=== PATIENT | female | born 1995 | race American Indian/Alaskan Native ===

== ENCOUNTER 2017-07-03 12:18 | Emergency (ER) | payer SELFPAY ==
[2017-07-03 12:34] VITALS: BP 149/93
[2017-07-03] MEDS ORDERED: MOTRIN PO ONE (15:00)
--- NOTE | 2017-07-03 15:05 | Emergency Department Report ---
ED Lower Extremity HPI - General Chief Complaint: Extremity Injury, Lower Stated Complaint: FALL,RIGHT ANKLE INJURY Time Seen by Provider: 07/03/17 14:00 Source: patient Mode of arrival: Ambulatory Limitations: Physical Limitation - History of Present Illness Initial Comments: This is a 21-year-old female nontoxic, well nourished in appearance, no acute signs of distress presents to the ED complaining of right ankle pain and swelling. Patient stated this morning she was walking down the steps when she inadvertently twisted her right ankle. Patient denies any nausea, vomiting, fever, chills, joint redness, joint swelling, chest pain, shortness of breath, numbness or tingling. Patient discussed pain as aching with level of 8 out of 10. Patient stated has decreased range of motion due to pain and has limited gait due to pain as well. Patient denies any allergies or past history. MD Complaint: ankle injury -: Gradual, This morning Injury: Ankle: Right Type of Injury: inversion Place: home Severity: mild Severity scale (0 -10): 8 Improves With: immobilization Worsens With: weight bearing, movement Context: other (inversion twist) Associated Symptoms: swelling, able to partially bear weight, ambulatory. denies: snap/pop sensation, numbness, tingling, unable to bear weight - Related Data Previous Rx's Medication Instructions Recorded Last Taken Type Ibuprofen [Motrin 600 MG tab] 600 mg PO Q8H PRN #30 tablet 07/03/17 Unknown Rx Allergies Allergy/AdvReac Type Severity Reaction Status Date / Time No Known Allergies Allergy Unverified 07/03/17 12:34 ED Review of Systems ROS: Stated complaint: FALL,RIGHT ANKLE INJURY Other details as noted in HPI Constitutional: denies: chills, fever Eyes: denies: eye pain, eye discharge, vision change ENT: denies: ear pain, throat pain Respiratory: denies: cough, shortness of breath, wheezing Cardiovascular: denies: chest pain, palpitations Endocrine: no symptoms reported Gastrointestinal: denies: abdominal pain, nausea, diarrhea Genitourinary: denies: urgency, dysuria, discharge Musculoskeletal: denies: back pain, joint swelling, arthralgia Skin: denies: rash, lesions Neurological: denies: headache, weakness, paresthesias Psychiatric: denies: anxiety, depression Hematological/Lymphatic: denies: easy bleeding, easy bruising ED Past Medical Hx - Social History Smoking Status: Never Smoker Substance Use Type: None - Medications Home Medications: Home Medications Medication Instructions Recorded Confirmed Last Taken Type Ibuprofen [Motrin 600 MG tab] 600 mg PO Q8H PRN #30 tablet 07/03/17 Unknown Rx ED Physical Exam - General Limitations: Physical Limitation General appearance: alert, in no apparent distress - Head Head exam: Present: atraumatic, normocephalic, normal inspection - Eye Eye exam: Present: normal appearance, PERRL, EOMI. Absent: scleral icterus, conjunctival injection, nystagmus, periorbital swelling, periorbital tenderness Pupils: Present: normal accommodation - ENT ENT exam: Present: normal exam, normal orophraynx, mucous membranes moist, TM's normal bilaterally, normal external ear exam - Neck Neck exam: Present: normal inspection, full ROM. Absent: tenderness, meningismus, lymphadenopathy, thyromegaly - Respiratory Respiratory exam: Present: normal lung sounds bilaterally. Absent: respiratory distress, wheezes, rales, rhonchi, stridor, chest wall tenderness, accessory muscle use, decreased breath sounds, prolonged expiratory - Cardiovascular Cardiovascular Exam: Present: regular rate, normal rhythm, normal heart sounds. Absent: bradycardia, tachycardia, irregular rhythm, systolic murmur, diastolic murmur, rubs, gallop - GI/Abdominal GI/Abdominal exam: Present: soft, normal bowel sounds. Absent: distended, tenderness, guarding, rebound, rigid, diminished bowel sounds - Rectal Rectal exam: Present: deferred - Extremities Exam Extremities exam: Present: normal inspection, full ROM, tenderness, normal capillary refill. Absent: pedal edema, joint swelling, calf tenderness - Expanded Lower Extremity Exam Right Hip exam: Present: normal inspection, full ROM Upper Leg exam: Present: normal inspection, full ROM Knee exam: Present: normal inspection, full ROM Lower Leg exam: Present: normal inspection, full ROM Ankle exam: Present: normal inspection, full ROM, tenderness, swelling. Absent : abrasion, laceration, ecchymosis, deformity, crepidus, dislocation, erythema, anterior draw sign Foot/Toe exam: Present: normal inspection, full ROM. Absent: tenderness, swelling, abrasion, laceration, ecchymosis, deformity, crepidus, dislocation, erythema, amputation, puncture wound, foreign body, calcaneal tenderness, tenderness at base of 5th metatarsal, nail avulsion, subungual hematoma Neuro vascular tendon exam: Present: no vascular compromise. Absent: pulse deficit, abnormal cap refill, motor deficit, sensory deficit, tendon deficit, extremity cold to touch, pallor, abnormal 2-point discrimination, decreased fine /light touch, foot drop, peroneal nerve deficit, significant pain with passive ROM of distal joint Gait: Positive: observed and limited by pain 1 - swelling with tenderness - Back Exam Back exam: Present: normal inspection, full ROM. Absent: tenderness, CVA tenderness (R), CVA tenderness (L), muscle spasm, paraspinal tenderness, vertebral tenderness, rash noted - Neurological Exam Neurological exam: Present: alert, oriented X3, CN II-XII intact, normal gait, reflexes normal - Psychiatric Psychiatric exam: Present: normal affect, normal mood - Skin Skin exam: Present: warm, dry, intact, normal color. Absent: rash - Other Other exam information: Negative Stout test ED Course Vital Signs 07/03/17 12:26 Temperature 99.1 F Pulse Rate 84 Respiratory 20 Rate Blood Pressure 149/93 Blood Pressure 149/93 [Left] O2 Sat by Pulse 98 Oximetry - Reevaluation(s) Reevaluation #1: 07/03/17 15:05 Patient is speaking in full sentences with no signs of distress noted. ED Lower Extremity MDM - Medical Decision Making 21-year-old female that presents with a right ankle sprain. Patient was examined by me patient is stable. X-ray has been obtained and dictated radiologist with negative findings of any abnormalities, fractures or dislocation. Patient was notified of x-ray results with no further questions noted by the patient. Patient received ice pack to apply to the extremity. Patient received ibuprofen 800 mg by mouth in the ED. Patient received ankle stirrup and crutches at discharge. Patient was educated and instructed in Rice therapy. Patient is hemodynamically stable with stable vital signs. At time time of discharge, the patient does not seem toxic or ill in appearance. No acute signs of distress noted. Patient agrees to discharge treatment plan of care. No further questions noted by the patient. Patient was instructed to follow-up with a orthopedic doctor in 3-5 days or if symptoms worsen and continue return to emergency room as soon as possible possible. Critical care attestation.: If time is entered above; I have spent that time in minutes in the direct care of this critically ill patient, excluding procedure time. ED Disposition Clinical Impression: Right ankle sprain Qualifiers: Encounter type: initial encounter Involved ligament of ankle: unspecified ligament Qualified Code(s): S93.401A - Sprain of unspecified ligament of right ankle, initial encounter Disposition: TO HOME OR SELFCARE Is pt being admited?: No Does the pt Need Aspirin: No Condition: Stable Instructions: Ankle Sprain (ED), Ankle Stirrup Splint (ED), Crutch Instructions (ED), RICE Therapy (ED) Additional Instructions: follow-up with a orthopedic doctor in 3-5 days or if symptoms worsen and continue return to emergency room as soon as possible possible. Rest, elevate, ice extremity. Prescriptions: Ibuprofen [Motrin 600 MG tab] 600 mg PO Q8H PRN #30 tablet PRN Reason: Pain Referrals: PRIMARY CAREMD [Primary Care Provider] - 3-5 Days NOY JARA MD [Staff Physician] - 3-5 Days [facility] [Outside] - 3-5 Days [facility] [Outside] - 3-5 Days Forms: Work/School Release Form(ED)
--- NOTE | 2017-07-03 16:11 | XRay Report ---
Right ankle 3 views: History: Fall with pain. Findings: Soft tissue swelling lateral malleolus. No fracture or dislocation. Normal articular surfaces. Impression: No evidence of acute fracture.
--- NOTE | 2017-07-03 16:12 | XRay Report ---
Right foot 3 views: History: Fall with pain. Findings: No bony or articular abnormality. No fracture or dislocation or periosteal reaction. Impression: No evidence of acute fracture.
== END 2017-07-03 15:15 | disposition home or self-care (01) ==
LOC: ED 12:18
DX: S93.401A Sprain of unspecified ligament of right ankle, initial encounter (principal); X58.XXXA Exposure to other specified factors, initial encounter; Y93.01 Activity, walking, marching and hiking; Y99.8 Other external cause status; Y92.098 Other place in other non-institutional residence as the place of occurrence of the external cause

== ENCOUNTER 2017-11-09 10:08 | Emergency (ER) | payer OTHER ==
[2017-11-09 10:13] VITALS: BP 159/87
--- NOTE | 2017-11-09 11:34 | Emergency Department Report ---
ED Headache HPI - General Chief Complaint: Headache Stated Complaint: HEADACES Time Seen by Provider: 11/09/17 11:02 Source: patient Exam Limitations: no limitations - History of Present Illness Initial Comments: This is a 21 y.o. female that presents with headache for 4 months intermittently. Currently not having symptoms. Reports having a migraine 10 minutes prior to assessment. Patient reports headaches began after losing glasses. She has not been able to afford a new pair. She have been taking ibuprofen for symptom control with minimal improvement. Headache is usually on the left side of head and last for about 20 minutes. Reports when she take a nap that usually resolve symptoms better than NSAID's. Denies aura, nausea/ vomiting, photophobia, or visual changes. Timing/Duration: 1/2 hour Quality: pressure Head Injury Location: frontal (left side of frontal region) Recent Head Trauma: no recent headache/trauma, frequent headaches Associated Symptoms: denies symptoms Allergies/Adverse Reactions: Allergies No Known Allergies Allergy (Verified 11/09/17 10:10) Home Medications: Ambulatory Orders Ibuprofen [Motrin 600 MG tab] 600 mg PO Q8H PRN #30 tablet 07/03/17 ED Review of Systems ROS: Stated complaint: HEADACES Other details as noted in HPI Constitutional: denies: chills, fever ENT: denies: ear pain, throat pain Respiratory: denies: cough, shortness of breath, wheezing Cardiovascular: denies: chest pain, palpitations Gastrointestinal: denies: abdominal pain, nausea, diarrhea Neurological: headache. denies: weakness, paresthesias Psychiatric: denies: anxiety, depression ED Past Medical Hx - Past Medical History Previous Medical History?: No - Surgical History Additional Surgical History: eye surgery - Social History Smoking Status: Never Smoker Substance Use Type: None - Medications Home Medications: Home Medications Medication Instructions Recorded Confirmed Last Taken Type Ibuprofen [Motrin 600 MG tab] 600 mg PO Q8H PRN #30 tablet 07/03/17 Unknown Rx ED Physical Exam - General Limitations: No Limitations General appearance: alert, in no apparent distress - ENT ENT exam: Present: mucous membranes moist - Neck Neck exam: Present: normal inspection, full ROM. Absent: tenderness, lymphadenopathy, thyromegaly - Respiratory Respiratory exam: Present: normal lung sounds bilaterally. Absent: respiratory distress - Cardiovascular Cardiovascular Exam: Present: regular rate, normal rhythm. Absent: systolic murmur, diastolic murmur, rubs, gallop - GI/Abdominal GI/Abdominal exam: Present: soft, normal bowel sounds - Neurological Exam Neurological exam: Present: alert, oriented X3, normal gait - Psychiatric Psychiatric exam: Present: normal affect, normal mood - Skin Skin exam: Present: warm, dry, intact, normal color. Absent: rash ED Course Vital Signs 11/09/17 10:11 Temperature 98.6 F Pulse Rate 100 H Respiratory 18 Rate Blood Pressure 159/87 O2 Sat by Pulse 100 Oximetry ED Medical Decision Making - Radiology Data Radiology results: report reviewed, image reviewed Impression: Essentially negative CT scan of head. - Medical Decision Making This is a 21 y.o. female that presents with headache for 4 months intermittently. No history of migraines. Patient is stable and was examined by me. Currently not having a headache at this time. CT of head obtained and dictated by radiologist. Patient notified of normal results. Blood pressure 159/87. Patient instructed to continue using NSAID's when headache begin. F/U with PCP for headaches and elevated blood pressure. Instructed to start low sodium diet and increase activity. No further questions noted by the patient. Discharged home in stable condition. Follow up with PCP in 24-72 hours. Critical care attestation.: If time is entered above; I have spent that time in minutes in the direct care of this critically ill patient, excluding procedure time. ED Disposition Clinical Impression: Elevated blood pressure reading in office without diagnosis of hypertension Tension type headache Qualifiers: Headache chronicity pattern: episodic headache Intractability: not intractable Qualified Code(s): G44.219 - Episodic tension-type headache, not intractable Disposition: - TO HOME OR SELFCARE Is pt being admited?: No Does the pt Need Aspirin: No Condition: Stable Instructions: Tension Headache (ED), Acute Headache (ED), Hypertension (ED), Low Sodium Diet (ED) Additional Instructions: Take medication at start of headache. Minimize caffeine intake. Eat at scheduled times or 3 meals a day with snacks. Eat a low sodium diet to lower blood pressure. Follow up with primary care provider in 24-72 hours to f/u on elevated blood pressure. Referrals: [facility] [Outside] - 3-5 Days [facility] [Outside] - 3-5 Days [facility] [Outside] - 3-5 Days Time of Disposition: 12:49 Print Language: [place] ISLAND[place]
--- NOTE | 2017-11-09 12:04 | Cat Scan Report ---
CT scan of head without IV contrast: History: Migraine. Findings: Ventricles are normal in size and midline in location. No evidence of acute ischemic, hemorrhage or mass. No extra-axial fluid collection. Impression: Essentially negative CT scan of head.
== END 2017-11-09 12:57 | disposition home or self-care (01) ==
LOC: ED 10:08
DX: G44.219 Episodic tension-type headache, not intractable (principal); R03.0 Elevated blood-pressure reading, without diagnosis of hypertension
CPT/HCPCS: 70450; 99283

== ENCOUNTER 2017-12-04 08:50 | Emergency (ER) | payer SELFPAY ==
[2017-12-04 09:15] VITALS: BP 136/84
[2017-12-04] MEDS: MOTRIN PO ONE (11:18)
--- NOTE | 2017-12-04 11:22 | Emergency Department Report ---
ED Lower Extremity HPI - General Chief Complaint: Extremity Injury, Lower Stated Complaint: KNEE PAIN Time Seen by Provider: 12/04/17 10:57 Source: patient Mode of arrival: Ambulatory Limitations: No Limitations - History of Present Illness Initial Comments: This is a 21-year-old female nontoxic, well nourished in appearance, no acute signs of distress presents to the ED with c/o of right knee pain x3 days. Patient stated she was at work and hit her right knee against a metal and developed pain that is increasing. Patient denies any joint swelling, redness, fever, chills, nausea, vomiting, chest pain, short of breath, headache or stiff neck. Patient denies any numbness or tingling. Patient denies decreased range of motion or abnormal gait. Patient denies any drug allergies or significant past medical history. MD Complaint: knee injury -: days(s) (3) Injury: Knee: Right Type of Injury: blunt Place: work Severity: mild Severity scale (0 -10): 8 Improves With: immobilization Worsens With: movement, palpation Context: direct blow Associated Symptoms: ambulatory. denies: snap/pop sensation, swelling, numbness , tingling, unable to bear weight, able to partially bear weight - Related Data Previous Rx's Medication Instructions Recorded Last Taken Type Ibuprofen [Motrin 600 MG tab] 600 mg PO Q8H PRN #30 tablet 07/03/17 Unknown Rx Ibuprofen [Motrin] 600 mg PO Q8H PRN #30 tablet 12/04/17 Unknown Rx Allergies Allergy/AdvReac Type Severity Reaction Status Date / Time No Known Allergies Allergy Verified 11/09/17 10:10 ED Review of Systems ROS: Stated complaint: KNEE PAIN Other details as noted in HPI Constitutional: denies: chills, fever Eyes: denies: eye pain, eye discharge, vision change ENT: denies: ear pain, throat pain Respiratory: denies: cough, shortness of breath, wheezing Cardiovascular: denies: chest pain, palpitations Endocrine: no symptoms reported Gastrointestinal: denies: abdominal pain, nausea, diarrhea Genitourinary: denies: urgency, dysuria, discharge Musculoskeletal: arthralgia. denies: back pain, joint swelling Skin: denies: rash, lesions Neurological: denies: headache, weakness, paresthesias Psychiatric: denies: anxiety, depression Hematological/Lymphatic: denies: easy bleeding, easy bruising ED Past Medical Hx - Past Medical History Previous Medical History?: Yes Additional medical history: Vaginal delivery x 1 05-27-2016 - Surgical History Past Surgical History?: Yes Additional Surgical History: mine eye lid surgery - Social History Smoking Status: Never Smoker Substance Use Type: Non Opiate Pain - Medications Home Medications: Home Medications Medication Instructions Recorded Confirmed Last Taken Type Ibuprofen [Motrin 600 MG tab] 600 mg PO Q8H PRN #30 tablet 07/03/17 Unknown Rx Ibuprofen [Motrin] 600 mg PO Q8H PRN #30 tablet 12/04/17 Unknown Rx ED Physical Exam - General Limitations: No Limitations General appearance: alert, in no apparent distress - Head Head exam: Present: atraumatic, normocephalic - Eye Eye exam: Present: normal appearance Pupils: Present: normal accommodation - ENT ENT exam: Present: normal exam, mucous membranes moist - Neck Neck exam: Present: normal inspection, full ROM - Respiratory Respiratory exam: Present: normal lung sounds bilaterally. Absent: respiratory distress, wheezes, rales, rhonchi, stridor, chest wall tenderness, accessory muscle use, decreased breath sounds, prolonged expiratory - Cardiovascular Cardiovascular Exam: Present: regular rate, normal rhythm, normal heart sounds. Absent: irregular rhythm, systolic murmur, diastolic murmur, rubs, gallop - GI/Abdominal GI/Abdominal exam: Present: soft, normal bowel sounds - Rectal Rectal exam: Present: deferred - Extremities Exam Extremities exam: Present: normal inspection, full ROM, tenderness, normal capillary refill. Absent: pedal edema, joint swelling, calf tenderness - Expanded Lower Extremity Exam Right Hip exam: Present: normal inspection, full ROM Upper Leg exam: Present: normal inspection, full ROM Knee exam: Present: normal inspection, full ROM, tenderness, full knee extension. Absent: swelling, abrasion, laceration, ecchymosis, deformity, crepidus, dislocation, erythema, effusion, pain w/ pronation/supination, posterior draw sign, pain/laxity with valgus, pain/laxity with varus Lower Leg exam: Present: normal inspection, full ROM. Absent: Teresa's sign Ankle exam: Present: normal inspection, full ROM Foot/Toe exam: Present: normal inspection, full ROM Neuro vascular tendon exam: Present: no vascular compromise. Absent: pulse deficit, abnormal cap refill, motor deficit, sensory deficit, tendon deficit, extremity cold to touch, pallor, abnormal 2-point discrimination, decreased fine /light touch, foot drop, peroneal nerve deficit, significant pain with passive ROM of distal joint Gait: Positive: observed and normal - Back Exam Back exam: Present: normal inspection, full ROM - Neurological Exam Neurological exam: Present: alert, oriented X3, normal gait, reflexes normal - Psychiatric Psychiatric exam: Present: normal affect, normal mood - Skin Skin exam: Present: warm, dry, intact, normal color. Absent: rash ED Course Vital Signs 12/04/17 09:11 Temperature 98.8 F Pulse Rate 95 H Respiratory 20 Rate Blood Pressure 136/84 O2 Sat by Pulse 100 Oximetry - Reevaluation(s) Reevaluation #1: 12/04/17 11:22 Patient is speaking in full sentences with no signs of distress noted. ED Lower Extremity MDM - Medical Decision Making This is a 21-year-old female that presents with right knee strain. Patient is stable and was examined by me. X-ray has been obtained and dictated by the radiologist within normal limits. Patient is notified of the x-ray results with normal by the patient. Patient did receive Motrin in the ED. Patient was instructed on rice therapy. There is no joint swelling, joint redness or any signs of cellulitis. Patient is discharge and was instructed to Follow-up with a orthopedic doctor in 3-5 days or if symptoms worsen and continue return to emergency room as soon as possible. At time of discharge, the patient does not seem toxic or ill in appearance. No acute signs of distress noted. Patient agrees to discharge treatment plan of care. No further questions noted by the patient. Critical care attestation.: If time is entered above; I have spent that time in minutes in the direct care of this critically ill patient, excluding procedure time. ED Disposition Clinical Impression: Strain of right knee Qualifiers: Encounter type: initial encounter Qualified Code(s): S86.911A - Strain of unspecified muscle(s) and tendon(s) at lower leg level, right leg, initial encounter Disposition: TO HOME OR SELFCARE Is pt being admited?: No Does the pt Need Aspirin: No Condition: Stable Instructions: Knee Pain (ED), RICE Therapy (ED), Ibuprofen (By mouth) Additional Instructions: Follow-up with a orthopedic doctor in 3-5 days or if symptoms worsen and continue return to emergency room as soon as possible. Prescriptions: Ibuprofen [Motrin] 600 mg PO Q8H PRN #30 tablet PRN Reason: Pain Referrals: PRIMARY CARE, [Primary Care Provider] - 3-5 Days NOY JARA MD [Staff Physician] - 3-5 Days [facility] [Outside] - 3-5 Days [facility] [Outside] - 3-5 Days Forms: Work/School Release Form(ED)
--- NOTE | 2017-12-04 11:22 | XRay Report ---
RIGHT KNEE RADIOGRAPHS INDICATION: Pain. COMPARISON: None similar. FINDINGS: AP, lateral and oblique right knee radiographs demonstrate intact bony articulation and appearance. Normal soft tissues without evidence of suprapatellar effusion. CONCLUSION: Normal right knee radiographs. Thank you for the opportunity to participate in this patient's care.
== END 2017-12-04 11:55 | disposition home or self-care (01) ==
LOC: ED 08:50
DX: S86.911A Strain of unspecified muscle(s) and tendon(s) at lower leg level, right leg, initial encounter (principal); W22.8XXA Striking against or struck by other objects, initial encounter; Y93.89 Activity, other specified; Y92.89 Other specified places as the place of occurrence of the external cause; Y99.8 Other external cause status
CPT/HCPCS: 99283

== ENCOUNTER 2018-01-02 14:48 | Emergency (ER) | payer MEDICAID ==
[2018-01-02 15:22] VITALS: BP 135/94
[2018-01-02] MEDS ORDERED: DELTASONE PO ONE (17:38)
[2018-01-02] MEDS ORDERED: SUDAFED 12 HR PO PRN (17:38)
--- NOTE | 2018-01-02 17:39 | Emergency Department Report ---
Minor Respiratory - HPI Chief Complaint: Earache Stated Complaint: FLU LIKE SYMPTOMS Time Seen by Provider: 01/02/18 17:04 Duration: 3 Days Pain Location: Nose, Ear Severity: mild Minor Respiratory: Yes Rhinorrhea, Yes Able to Tolerate Fluids, Yes Ear Pain ( right), Yes Cough, No Sore Throat, No Sick Contacts, No Hemoptysis, No Chest Pain, No Shortness of Breath, No Fever Other History: 22-year-old female with no problem medical history presents with worsening cold symptoms 3 days. Patient admits cough and runny nose and decreased appetite but is able to eat and drink fluids appropriately. Patient says she's been taking Tylenol with some relief. Patient also admits right ear pain. She denies any trauma to the ears. She denies fevers/chills/nausea vomiting. ED Review of Systems ROS: Stated complaint: FLU LIKE SYMPTOMS Other details as noted in HPI Constitutional: denies: chills, fever Eyes: denies: eye pain, eye discharge, vision change ENT: ear pain (right). denies: throat pain Respiratory: cough. denies: shortness of breath, wheezing Cardiovascular: denies: chest pain, palpitations Endocrine: no symptoms reported Gastrointestinal: denies: abdominal pain, nausea, diarrhea Genitourinary: denies: urgency, dysuria, discharge Musculoskeletal: denies: back pain, joint swelling, arthralgia Skin: denies: rash, lesions Neurological: denies: headache, weakness, paresthesias Psychiatric: denies: anxiety, depression Hematological/Lymphatic: denies: easy bleeding, easy bruising ED Past Medical Hx - Past Medical History Previous Medical History?: No Additional medical history: Vaginal delivery x 1 05-27-2016 - Surgical History Past Surgical History?: No Additional Surgical History: mine eye lid surgery - Social History Smoking Status: Never Smoker Substance Use Type: None - Medications Home Medications: Home Medications Medication Instructions Recorded Confirmed Last Taken Type Ibuprofen [Motrin 600 MG tab] 600 mg PO Q8H PRN #30 tablet 07/03/17 Unknown Rx Ibuprofen [Motrin 600 MG tab] 600 mg PO Q8H PRN #30 tablet 01/02/18 Unknown Rx Pseudoephedrine ER [Sudafed 12 Hr] 120 mg PO Q12HR PRN #20 tablet 01/02/18 Unknown Rx guaiFENesin [Robitussin] 200 mg PO TID #20 tablet 01/02/18 Unknown Rx Minor Respiratory Exam - Exam General: Vital signs noted. No distress. Alert and acting appropriately. HEENT: Yes Moist Mucous Membranes, Yes Maxillary Tenderness, No Pharyngeal Erythema, No Pharyngeal Exudates, No Rhinorrhea, No Conjuctival Injection, No Frontal Tenderness Ear: Neither TM Bulge, Neither TM Erythema, Neither EAC Pain, Neither EAC Discharge Neck: Yes Supple, No Adenopathy Lungs: Yes Good Air Exchange, No Wheezes, No Ronchi, No Stridor, No Cough, No Labored Respirations, No Retractions, No Use of Accessory Muscles, No Other Abnormal Lung Sounds Heart: Yes Regular, No Murmur Abdomen: Yes Normal Bowel Sounds, No Tenderness, No Peritoneal Signs Skin: No Rash, No Edema Neurologic: Alert and oriented, no deficits. Musculoskeletal: Unremarkable. ED Course Vital Signs 01/02/18 15:18 Temperature 98.3 F Pulse Rate 96 H Respiratory 16 Rate Blood Pressure 135/94 O2 Sat by Pulse 99 Oximetry ED Medical Decision Making - Medical Decision Making 22-year-old female presents with upper respiratory infection/sinusitis ED course: The patient received maintenance in the ED Discussed with patient and to take medication as prescribed. Discussed symptomatic relief Patient is in no acute or respiratory distress Vital signs are normal. Discussed with the patient follow-up physician in 3-5 days. Critical care attestation.: If time is entered above; I have spent that time in minutes in the direct care of this critically ill patient, excluding procedure time. ED Disposition Clinical Impression: URI (upper respiratory infection) Qualifiers: URI type: unspecified URI Qualified Code(s): J06.9 - Acute upper respiratory infection, unspecified Sinusitis Qualifiers: Sinusitis location: maxillary Chronicity: acute Recurrence: non-recurrent Qualified Code(s): J01.00 - Acute maxillary sinusitis, unspecified Disposition: - TO HOME OR SELFCARE Is pt being admited?: No Does the pt Need Aspirin: No Condition: Stable Instructions: Upper Respiratory Infection (ED), Viral Syndrome (ED), Cold Symptoms (ED) Additional Instructions: Make sure to follow up with the primary care physician as discussed. Take all your medications as you've been prescribed. If you have any worsening symptoms or develop new symptoms please return to ED immediately. Prescriptions: guaiFENesin [Robitussin] 200 mg PO TID #20 tablet Ibuprofen [Motrin 600 MG tab] 600 mg PO Q8H PRN #30 tablet PRN Reason: Pain Pseudoephedrine ER [Sudafed 12 Hr] 120 mg PO Q12HR PRN #20 tablet PRN Reason: Allergy Symptoms Referrals: Todd FREED [Other] - 3-5 Days Forms: Work/School Release Form(ED) Time of Disposition: 18:12
[2018-01-02] MEDS ORDERED: ROBITUSSIN PO ONE (19:00)
== END 2018-01-02 18:53 | disposition home or self-care (01) ==
LOC: ED 14:48
DX: J01.00 Acute maxillary sinusitis, unspecified (principal); J06.9 Acute upper respiratory infection, unspecified
CPT/HCPCS: 99282; J7512

== ENCOUNTER 2018-03-07 08:14 | Emergency (ER) | payer MEDICAID ==
[2018-03-07 08:21] VITALS: BP 144/90
--- NOTE | 2018-03-07 09:40 | Emergency Department Report ---
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 Patient states that she has the most pain in the mornings and when she is transitioning going in or out of her vehicle. The lady status postsome increased weight on that leg that she has pain. Patient denies any leg swelling trauma chest pain shortness of breath at this time. Patient states 8 out of 10 pain she is not taking anything [id number] for pain at this time. - Related Data Previous Rx's Medication Instructions Recorded Last Taken Type Ibuprofen [Motrin 600 MG tab] 600 mg PO Q8H PRN #30 tablet 07/03/17 Unknown Rx Pseudoephedrine ER [Sudafed 12 Hr] 120 mg PO Q12HR PRN #20 tablet 01/02/18 Unknown Rx guaiFENesin [Robitussin] 200 mg PO TID #20 tablet 01/02/18 Unknown Rx Ibuprofen [Motrin 600 MG tab] 600 mg PO Q8H PRN #30 tablet 03/07/18 Unknown Rx Allergies Allergy/AdvReac Type Severity Reaction Status Date / Time No Known Allergies Allergy Verified 11/09/17 10:10 ED Review of Systems ROS: Stated complaint: RIGHT KNEE PAIN [id number] Other details as noted in HPI Comment: All other systems reviewed and negative ED Past Medical Hx - Past Medical History Previous Medical History?: Yes Hx Hypertension: Yes (no meds) Additional medical history: Vaginal delivery x 1 05-27-2016 - Surgical History Past Surgical History?: Yes Additional Surgical History: mine eye lid surgery - Social History Smoking Status: Never Smoker Substance Use Type: Non Opiate Pain - Medications Home Medications: Home Medications Medication Instructions Recorded Confirmed Last Taken Type Ibuprofen [Motrin 600 MG tab] 600 mg PO Q8H PRN #30 tablet 07/03/17 Unknown Rx Pseudoephedrine ER [Sudafed 12 Hr] 120 mg PO Q12HR PRN #20 tablet 01/02/18 Unknown Rx guaiFENesin [Robitussin] 200 mg PO TID #20 tablet 01/02/18 Unknown Rx Ibuprofen [Motrin 600 MG tab] 600 mg PO Q8H PRN #30 tablet 03/07/18 Unknown Rx ED Physical Exam - General Limitations: No Limitations General appearance: alert, in no apparent distress - Head Head exam: Present: atraumatic, normocephalic - Eye Eye exam: Present: normal appearance - ENT ENT exam: Present: mucous membranes moist - Neck Neck exam: Present: normal inspection - Respiratory Respiratory exam: Present: normal lung sounds bilaterally. Absent: respiratory distress - Cardiovascular Cardiovascular Exam: Present: regular rate, normal rhythm. Absent: systolic murmur, diastolic murmur, rubs, gallop - GI/Abdominal GI/Abdominal exam: Present: soft, normal bowel sounds - Extremities Exam Extremities exam: Present: normal inspection, other (mild tenderness medial R knee) - Back Exam Back exam: Present: normal inspection - Neurological Exam Neurological exam: Present: alert, oriented X3 - Psychiatric Psychiatric exam: Present: normal affect, normal mood - Skin Skin exam: Present: warm, dry, intact, normal color. Absent: rash ED Course Vital Signs 03/07/18 08:18 Temperature 98.8 F Pulse Rate 103 H Respiratory 20 Rate Blood Pressure 144/90 O2 Sat by Pulse 98 Oximetry ED Medical Decision Making - Medical Decision Making RICE and referral to ortho Critical care attestation.: If time is entered above; I have spent that time in minutes in the direct care of this critically ill patient, excluding procedure time. ED Disposition Clinical Impression: Knee pain, chronic Qualifiers: Laterality: right Qualified Code(s): M25.561 - Pain in right knee; G89.29 - Other chronic pain Disposition: DC-01 TO HOME OR SELFCARE Is pt being admited?: No Does the pt Need Aspirin: No Condition: Stable Instructions: Knee Pain (ED) Prescriptions: Ibuprofen [Motrin 600 MG tab] 600 mg PO Q8H PRN #30 tablet PRN Reason: Pain Referrals: NOY JARA MD [Staff Physician] - 3-5 Days
== END 2018-03-07 09:58 | disposition home or self-care (01) ==
LOC: ED 08:14
DX: M25.561 Pain in right knee (principal); G89.29 Other chronic pain; I10 Essential (primary) hypertension
CPT/HCPCS: 99282

== ENCOUNTER 2018-09-10 20:46 | Emergency (ER) | payer MEDICAID ==
[2018-09-10 22:03] LABS: Basophils % (Auto) 0.4 % (0.0-1.8); Eosinophils # (Auto) 0.1 K/mm3 (0.0-0.4); Eosinophils % (Auto) 0.6 % (0.0-4.3); Hematocrit 41.6 % (30.3-42.9); Lymphocytes # (Auto) 1.9 K/mm3 (1.2-5.4); Lymphocytes % (Auto) 21.5 % (13.4-35.0); Mean Corpuscular HGB Conc 34 % (30-34); Mean Corpuscular Volume 86 fl (79-97); Monocytes # (Auto) 0.8 K/mm3 (0.0-0.8); Monocytes % (Auto) 8.5 % (0.0-7.3); Platelet Count 349 K/mm3 (140-440); Red Blood Count 4.87 M/mm3 (3.65-5.03)
[2018-09-10 22:20] LABS: INR 0.99 (0.87-1.13)
[2018-09-10 22:27] LABS: Alanine Aminotransferase 90 units/L (7-56); Albumin 3.9 g/dL (3.9-5); BUN/Creatinine Ratio 6; Blood Urea Nitrogen 3 mg/dL (7-17); Calcium 9.2 mg/dL (8.4-10.2); Hemolysis Index 0
[2018-09-10] MEDS ORDERED: NACL 0.9% 1000 ML 1,000 ML IV ONE (23:40)
--- NOTE | 2018-09-11 00:22 | Emergency Department Report ---
ED HPI - General Chief complaint: Nausea/Vomiting/Diarrhea Stated complaint: 16 WKS VOMITING BLOOD Time Seen by Provider: 09/10/18 23:35 Source: patient Mode of arrival: Ambulatory Limitations: No Limitations - History of Present Illness Initial comments: 22-year-old female 16 weeks presents to ED with complaints of nausea and vomiting. Patient seen for same 4 days ago, was given prescription for Reglan, however patient states it is not helping. Prior to that prescription patient was given Zofran by her [employer]OX IN[employer]ER, which also did not help. Patient states today she has streaks of blood in her emesis. Patient denies abdominal pain. 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 Franco in [place] Complaint: other (nausea and vomiting) -: days(s) (4) Severity: moderate Consistency: constant Improves with: none Worsens with: eating Associated symptoms: nausea/vomiting. denies: abdominal pain Vaginal bleeding: none :: Yes Number of weeks : 16 OB History - Current : no complications OB History - Previous Pregnancies: hyperemesis Pre-hugo care: followed by OB - Related Data Previous Rx's Medication Instructions Recorded Last Taken Type Ibuprofen [Motrin 600 MG tab] 600 mg PO Q8H PRN #30 tablet 07/03/17 Unknown Rx Pseudoephedrine ER [Sudafed 12 Hr] 120 mg PO Q12HR PRN #20 tablet 01/02/18 Unknown Rx guaiFENesin [Robitussin] 200 mg PO TID #20 tablet 01/02/18 Unknown Rx Ibuprofen [Motrin 600 MG tab] 600 mg PO Q8H PRN #30 tablet 03/07/18 Unknown Rx Acetaminophen [Tylenol] 650 mg PO QID PRN #30 capsule 09/07/18 Unknown Rx Metoclopramide [Reglan] 10 mg PO Q6H PRN #40 tablet 09/07/18 Unknown Rx diphenhydrAMINE [Benadryl CAP] 25 mg PO Q6HR PRN #30 capsule 09/07/18 Unknown Rx Promethazine [Phenergan TAB] 25 mg PO Q6HR PRN #15 tab 09/11/18 Unknown Rx Promethazine [Phenergan] 25 mg ME Q6HR PRN #15 supp.rect 09/11/18 Unknown Rx Allergies Allergy/AdvReac Type Severity Reaction Status Date / Time No Known Allergies Allergy Verified 11/09/17 10:10 ED Review of Systems ROS: Stated complaint: 16 WKS VOMITING BLOOD Other details as noted in HPI Comment: All other systems reviewed and negative Constitutional: denies: chills, fever Gastrointestinal: nausea, vomiting. denies: abdominal pain ED Past Medical Hx - Past Medical History Previous Medical History?: Yes Hx Hypertension: Yes (no meds) Additional medical history: Vaginal delivery x 1 05-27-2016 - Surgical History Past Surgical History?: Yes Additional Surgical History: mine eye lid surgery - Social History Smoking Status: Never Smoker Substance Use Type: None - Medications Home Medications: Home Medications Medication Instructions Recorded Confirmed Last Taken Type Ibuprofen [Motrin 600 MG tab] 600 mg PO Q8H PRN #30 tablet 07/03/17 Unknown Rx Pseudoephedrine ER [Sudafed 12 Hr] 120 mg PO Q12HR PRN #20 tablet 01/02/18 Unknown Rx guaiFENesin [Robitussin] 200 mg PO TID #20 tablet 01/02/18 Unknown Rx Ibuprofen [Motrin 600 MG tab] 600 mg PO Q8H PRN #30 tablet 03/07/18 Unknown Rx Acetaminophen [Tylenol] 650 mg PO QID PRN #30 capsule 09/07/18 Unknown Rx Metoclopramide [Reglan] 10 mg PO Q6H PRN #40 tablet 09/07/18 Unknown Rx diphenhydrAMINE [Benadryl CAP] 25 mg PO Q6HR PRN #30 capsule 09/07/18 Unknown Rx Promethazine [Phenergan TAB] 25 mg PO Q6HR PRN #15 tab 09/11/18 Unknown Rx Promethazine [Phenergan] 25 mg ME Q6HR PRN #15 supp.rect 09/11/18 Unknown Rx ED Physical Exam - General Limitations: No Limitations General appearance: alert, in no apparent distress, other (appears nontoxic, pt talking and laughing on cell phone) - Head Head exam: Present: atraumatic, normocephalic - Eye Eye exam: Present: normal appearance - ENT ENT exam: Present: mucous membranes moist - Neck Neck exam: Present: normal inspection - Respiratory Respiratory exam: Present: normal lung sounds bilaterally. Absent: respiratory distress - Cardiovascular Cardiovascular Exam: Present: normal rhythm, tachycardia - GI/Abdominal GI/Abdominal exam: Present: soft. Absent: distended, tenderness - Extremities Exam Extremities exam: Present: normal inspection - Neurological Exam Neurological exam: Present: alert, oriented X3 - Psychiatric Psychiatric exam: Present: normal affect, normal mood - Skin Skin exam: Present: warm, dry, intact, normal color ED Course Vital Signs 09/10/18 09/11/18 21:17 00:36 Temperature 98.6 F Pulse Rate 130 H 94 H Respiratory 16 18 Rate Blood Pressure 124/92 Blood Pressure 133/82 [Left] O2 Sat by Pulse 99 100 Oximetry - Consultations Consultation #1: 09/11/18 01:49 Spoke w/ Dr Phelps, OB on-call. States pt does not require admission. Give rx for phenergan and have her follow up in office. ED Medical Decision Making - Lab Data Result diagrams: 09/10/18 21:33 09/10/18 21:33 - Medical Decision Making 22-year-old female, , currently 16 weeks with nausea and vomiting. Patient has already been on Zofran and Reglan,these medications are not helping. Patient slightly hypokalemia at here in ED, so given PO potassium. No emesis afterward. A prescription for Phenergan tabs and suppositories. Patient requests a new [employer]OX IN[employer]ER, as her current OB is in [place]. Will give him information for Dr. Phelps as well for outpatient follow-up. - Differential Diagnosis hyperemesis gravidarum, hypokalemia, dehydration, ARF Critical care attestation.: If time is entered above; I have spent that time in minutes in the direct care of this critically ill patient, excluding procedure time. ED Disposition Clinical Impression: Nausea and vomiting during , Mild dehydration, Hypokalemia Disposition: - TO HOME OR SELFCARE Is pt being admited?: No Condition: Stable Instructions: Hyperemesis Gravidarum (ED) Prescriptions: Promethazine [Phenergan TAB] 25 mg PO Q6HR PRN #15 tab PRN Reason: Vomiting Promethazine [Phenergan] 25 mg ME Q6HR PRN #15 supp.rect PRN Reason: Vomiting Referrals: PRIMARY CARE, [Primary Care Provider] - 3-5 Days MACKENZIE PHELPS [Staff Physician] - 3-5 Days Time of Disposition: 02:06
[2018-09-11 00:38] VITALS: BP 133/82
[2018-09-11] MEDS ORDERED: PHENERGAN PO ONE (01:22)
[2018-09-11] MEDS ORDERED: K-DUR PO ONE (01:23)
[2018-09-11] MEDS ORDERED: BENADRYL IV ONE (03:04)
[2018-09-11] MEDS ORDERED: ZOFRAN IV ONE (03:04)
[2018-09-11] MEDS ORDERED: REGLAN ONE (03:06)
[2018-09-11] MEDS ORDERED: BENADRYL ONE (03:06)
== END 2018-09-11 04:38 | disposition home or self-care (01) ==
LOC: ED 20:46
DX: O21.9 Vomiting of pregnancy, unspecified (principal); O26.892 Other specified pregnancy related conditions, second trimester; E87.6 Hypokalemia; E86.0 Dehydration; I10 Essential (primary) hypertension; Z3A.16 16 weeks gestation of pregnancy
CPT/HCPCS: 36415; 80053; 83690; 85025; 85610; 85730; 86850; 86900; 86901; 93005; 93010; 96361; 96374; 96375; 99284; J1200; J2765; J7030; Q0169